=== PATIENT | male | born 1955 | race Two or more races ===

== ENCOUNTER 2020-08-11 14:31 | Outpatient (CLI) | payer OTHER | END 2020-08-11 14:40 | disposition home or self-care (01) | LOC: RAD 14:31 | PROVIDERS: ATTEND Internal Medicine Pulmonary Disease | DX: J44.9 Chronic obstructive pulmonary disease, unspecified (principal) ==

== ENCOUNTER 2020-11-28 20:44 | Emergency (ER) | payer OTHER ==
[~2020-11-28] VITALS: Ht 165.1 cm; Wt 77.1 kg
[2020-11-28] MEDS ORDERED: CARVEDILOL ER40 MG (21:03)
[2020-11-28] MEDS ORDERED: ISOSORBIDE MONO60 M2 (21:03)
[2020-11-28] MEDS ORDERED: SIMVASTATIN5 MG (21:03)
[2020-11-28] MEDS ORDERED: CILOSTAZOL50 MG (21:04)
[2020-11-28] MEDS ORDERED: ADULT LOW DOSE81 M1 (21:04)
[2020-11-28] MEDS ORDERED: PLAVIX75 MG (21:04)
[2020-11-28] MEDS ORDERED: B COMPLEX1 EACH (21:04)
== END 2020-11-28 22:00 | disposition home or self-care (01) ==
LOC: ER 20:44
DX: S01.421A Laceration with foreign body of right cheek and temporomandibular area, initial encounter (principal); W26.8XXA Contact with other sharp object(s), not elsewhere classified, initial encounter; Y93.89 Activity, other specified; Y92.89 Other specified places as the place of occurrence of the external cause; Y99.8 Other external cause status

== ENCOUNTER 2024-08-22 14:26 | Outpatient (CLI) | payer OTHER ==
[~2024-08-22 14:26] MED LIST: ADULT LOW DOSE81 M1; B COMPLEX1 EACH; CARVEDILOL ER40 MG; CILOSTAZOL50 MG; ISOSORBIDE MONO60 M2; PLAVIX75 MG; SIMVASTATIN5 MG
== END 2024-08-22 14:32 | disposition home or self-care (01) ==
LOC: SONOGRAMA 14:26
DX: M72.2 Plantar fascial fibromatosis (principal)